=== PATIENT | female | born 1940 | race Caucasian/White ===

== ENCOUNTER → 2016-07-28 | Outpatient (CLI) | payer MEDICARE ==
[~2016-07-28] MED LIST: AMBIEN 10MG10 MG PO; CALCIUM & MAGNE1 CAP PO; COD LIVER OIL1 CAP PO; COREG 3.123.125 MG/T PO; FLEXERIL5 MG PO; GLUCOSAMINE & C1 CA1 PO; OMEGA PO; PROVENTIL0.09 MG/A1 IH; VITAMIN B1225 MCG PO; VITAMIN D1000 IU PO; XANAX .25M0.25 MG/TA PO
== END ==
LOC: MC.RAD 08:26
DX: Z12.31 Encounter for screening mammogram for malignant neoplasm of breast (principal)

== ENCOUNTER → 2016-08-14 | Outpatient (CLI) | payer MEDICARE | LOC: COL.RAD 12:19 | DX: M50.11 Cervical disc disorder with radiculopathy, high cervical region (principal); M25.78 Osteophyte, vertebrae ==

== ENCOUNTER → 2017-02-20 | Outpatient (CLI) | payer MEDICARE | LOC: COL.RAD 12:27 | DX: G45.8 Other transient cerebral ischemic attacks and related syndromes (principal); R27.0 Ataxia, unspecified ==

== ENCOUNTER 2017-10-29 09:04 | Day surgery (SDC) | payer MEDICARE ==
[~2017-10-29] VITALS: Ht 167.7 cm; Wt 78.2 kg
[~2017-10-29 09:04] MED LIST changes: +ADVIL200 MG PO; +ASPIRIN 32325 MG/TAB PO; +CALCIUM 600MG+D1 TAB PO; +CATAPRES 0.1MG0.1 MG PO; +CYMBALTA 30MG30 MG PO; +CYMBALTA 60MG60 MG PO; +FLEXERIL 1010 MG/TAB PO; +FOSAMAX 70MG TA70 MG PO; +NORVASC 5MG5 MG/TAB PO; +SINGULAIR 110 MG/TAB PO; +SYNTHROID 0.0.025 MG PO; +TYLENOL 500MG500 MG PO; +ZYRTEC 10MG10 MG PO
[2017-10-29 10:00] VITALS: BP 104/51; PULSE 72; TEMP 98.2
[2017-10-29] MEDS ORDERED: CLEOCIN HCL300 MG PO (10:23)
== END 2017-10-29 11:03 | disposition home or self-care (01) ==
LOC: COL.CAR 09:04
DX: I48.0 Paroxysmal atrial fibrillation (principal); R00.1 Bradycardia, unspecified; Z53.9 Procedure and treatment not carried out, unspecified reason; I10 Essential (primary) hypertension; E88.01 Alpha-1-antitrypsin deficiency; Z79.82 Long term (current) use of aspirin; Z79.899 Other long term (current) drug therapy

== ENCOUNTER → 2018-06-21 | Outpatient (CLI) | payer MEDICARE ==
[~2018-06-21] MED LIST changes: +BETAPACE 80MG80 MG PO; +CLEOCIN HCL300 MG PO
== END ==
LOC: MC.RAD 10:40
DX: Z12.31 Encounter for screening mammogram for malignant neoplasm of breast (principal)

== ENCOUNTER → 2019-03-24 | Outpatient (CLI) | payer MEDICARE | LOC: COL.RAD 07:50 | DX: M12.88 Other specific arthropathies, not elsewhere classified, other specified site (principal); M51.36 Other intervertebral disc degeneration, lumbar region; S32.030A Wedge compression fracture of third lumbar vertebra, initial encounter for closed fracture ==

== ENCOUNTER → 2019-12-16 | Outpatient (CLI) | payer MEDICARE | LOC: COL.RAD 17:23 | DX: M47.816 Spondylosis without myelopathy or radiculopathy, lumbar region (principal); M43.8X6 Other specified deforming dorsopathies, lumbar region; K57.30 Diverticulosis of large intestine without perforation or abscess without bleeding; R16.1 Splenomegaly, not elsewhere classified; R59.0 Localized enlarged lymph nodes; K80.20 Calculus of gallbladder without cholecystitis without obstruction; R19.7 Diarrhea, unspecified; Z95.0 Presence of cardiac pacemaker; Z87.81 Personal history of (healed) traumatic fracture | CPT/HCPCS: Q9967 ==